=== PATIENT | female | born 1960 | race Hispanic/Latino ===

== ENCOUNTER 2017-06-18 14:18 | Emergency (ER) | payer BC ==
[2017-06-18 15:01] VITALS: BP 135/77
--- NOTE | 2017-06-18 15:47 | XRay Report ---
RIGHT TOE RADIOGRAPHS INDICATION: Pain. COMPARISON: 07/15/2015. FINDINGS: AP view of the right foot with oblique and lateral projections to evaluate the fifth toe demonstrate grossly intact bones, joints and soft tissues. Osteopenia. Interval healing of fifth metatarsal fracture. CONCLUSION: No definite acute right fifth toe radiographic abnormality, as described. Please correlate. Thank you for the opportunity to participate in this patient's care.
--- NOTE | 2017-06-18 16:04 | Emergency Department Report ---
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 PT denies numbness or tingling MD Complaint: foot injury Onset/Timin -: days(s) Injury: Toes: Right (pinky ) Type of Injury: other (ran over by [employer] ) Place: work Severity: moderate Severity scale (0 -10): 5 Improves With: nothing Worsens With: weight bearing, movement, palpation Context: other (ran over by [employer] ) Associated Symptoms: swelling, able to partially bear weight. denies: numbness , tingling Treatments Prior to Arrival: cold therapy - Related Data Home Medications Medication Instructions Recorded Confirmed Last Taken Meclizine [Antivert] 25 mg PO BID PRN 07/15/15 07/15/15 Unknown Previous Rx's Medication Instructions Recorded Last Taken Type HYDROcodone/APAP 5-325 [[place] 1 each PO Q6HR PRN #15 tablet 07/15/15 Unknown Rx 5/325] Acetaminophen/Codeine [Tylenol 1 tab PO Q8HR PRN #21 tab 06/18/17 Unknown Rx /Codeine # 3 tab] Allergies Allergy/AdvReac Type Severity Reaction Status Date / Time ibuprofen AdvReac Nausea Verified 07/15/15 13:21 ED Review of Systems ROS: Stated complaint: BROKEN R TOE Other details as noted in HPI Constitutional: denies: chills, fever Eyes: denies: eye pain, eye discharge, vision change ENT: denies: ear pain, throat pain Respiratory: denies: cough, shortness of breath, wheezing Cardiovascular: denies: chest pain, palpitations Endocrine: no symptoms reported Gastrointestinal: denies: abdominal pain, nausea, diarrhea Genitourinary: denies: urgency, dysuria, discharge Musculoskeletal: myalgia, other (right foot and pinky toe pain ) Skin: denies: rash, lesions Neurological: denies: headache, weakness, paresthesias Psychiatric: denies: anxiety, depression Hematological/Lymphatic: denies: easy bleeding, easy bruising ED Past Medical Hx - Past Medical History Previous Medical History?: Yes Additional medical history: VERTIGO - Surgical History Additional Surgical History: HYSTERECTOMY. - Social History Smoking Status: Current Every Day Smoker Substance Use Type: None - Medications Home Medications: Home Medications Medication Instructions Recorded Confirmed Last Taken Type HYDROcodone/APAP 5-325 [[place] 1 each PO Q6HR PRN #15 tablet 07/15/15 Unknown Rx 5/325] Meclizine [Antivert] 25 mg PO BID PRN 07/15/15 07/15/15 Unknown History Acetaminophen/Codeine [Tylenol 1 tab PO Q8HR PRN #21 tab 06/18/17 Unknown Rx /Codeine # 3 tab] ED Physical Exam - General Limitations: No Limitations General appearance: alert, in no apparent distress - Head Head exam: Present: atraumatic, normocephalic - Eye Eye exam: Present: normal appearance - ENT ENT exam: Present: mucous membranes moist - Neck Neck exam: Present: normal inspection - Respiratory Respiratory exam: Present: normal lung sounds bilaterally. Absent: respiratory distress - Cardiovascular Cardiovascular Exam: Present: regular rate, normal rhythm. Absent: systolic murmur, diastolic murmur, rubs, gallop - GI/Abdominal GI/Abdominal exam: Present: soft, normal bowel sounds - Rectal Rectal exam: Present: deferred - Extremities Exam Extremities exam: Present: full ROM, tenderness (right pinky toe ecchymosis mild swelling ), normal capillary refill. Absent: pedal edema, joint swelling, calf tenderness - Expanded Lower Extremity Exam Right Foot/Toe exam: Present: full ROM, tenderness, swelling, ecchymosis, tenderness at base of 5th metatarsal. Absent: abrasion, laceration, deformity, crepidus, dislocation, erythema, amputation, puncture wound, foreign body, calcaneal tenderness, nail avulsion, subungual hematoma Neuro vascular tendon exam: Present: no vascular compromise. Absent: pulse deficit, abnormal cap refill, motor deficit, sensory deficit, tendon deficit, extremity cold to touch, pallor, abnormal 2-point discrimination, decreased fine /light touch, foot drop, peroneal nerve deficit, significant pain with passive ROM of distal joint Gait: Positive: observed and limited by pain - Back Exam Back exam: Present: normal inspection - Neurological Exam Neurological exam: Present: alert, oriented X3 - Psychiatric Psychiatric exam: Present: normal affect, normal mood - Skin Skin exam: Present: warm, dry, intact, normal color. 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 PT denies numbness or tingling. exam right 5th toe mild ecchymosis no deformity pain with palpation xray negative for fracture. plan: ortho shoe, tylenol #3 po qid prn pain, follow up with ortho if symptoms not improving, pt verbalized agreement and understanding of same. Critical care attestation.: If time is entered above; I have spent that time in minutes in the direct care of this critically ill patient, excluding procedure time. ED Disposition Clinical Impression: Sprain of toe, fifth, right Qualifiers: Encounter type: initial encounter Qualified Code(s): S93.504A - Unspecified sprain of right lesser toe(s), initial encounter Disposition: - TO HOME OR SELFCARE Is pt being admited?: No Does the pt Need Aspirin: No Condition: Good Instructions: Foot Sprain (ED) Prescriptions: Acetaminophen/Codeine [Tylenol /Codeine # 3 tab] 1 tab PO Q8HR PRN #21 tab PRN Reason: Pain Referrals: MARI LIRIANO MD [Staff Physician] - 3-5 Days Forms: Work/School Release Form(ED) Time of Disposition: 16:14
== END 2017-06-18 17:00 | disposition home or self-care (01) ==
LOC: ED 14:18
DX: S93.504A Unspecified sprain of right lesser toe(s), initial encounter (principal); F17.200 Nicotine dependence, unspecified, uncomplicated; Z88.6 Allergy status to analgesic agent; X58.XXXA Exposure to other specified factors, initial encounter; Y93.89 Activity, other specified; Y92.89 Other specified places as the place of occurrence of the external cause; Y99.8 Other external cause status
CPT/HCPCS: 99283

== ENCOUNTER 2017-12-25 04:59 | Emergency (ER) | payer BC ==
[2017-12-25 06:21] LABS: Basophils % (Auto) 0.4 % (0.0-1.8); Eosinophils # (Auto) 0.1 K/mm3 (0.0-0.4); Eosinophils % (Auto) 1.4 % (0.0-4.3); Hematocrit 42.3 % (30.3-42.9); Hemoglobin 14.6 gm/dl (10.1-14.3); Lymphocytes # (Auto) 1.9 K/mm3 (1.2-5.4); Lymphocytes % (Auto) 20.4 % (13.4-35.0); Mean Corpuscular HGB Conc 35 % (30-34); Mean Corpuscular Hemoglobin 33 pg (28-32); Mean Corpuscular Volume 95 fl (79-97); Monocytes # (Auto) 0.5 K/mm3 (0.0-0.8); Monocytes % (Auto) 5.3 % (0.0-7.3); Platelet Count 281 K/mm3 (140-440); Red Blood Count 4.44 M/mm3 (3.65-5.03); Red Cell Distribution Width 12.7 % (13.2-15.2)
[2017-12-25 06:39] LABS: BUN/Creatinine Ratio 20; Blood Urea Nitrogen 12 mg/dL (7-17); Calcium 9.3 mg/dL (8.4-10.2); Hemolysis Index 5
[2017-12-25 08:30] VITALS: BP 137/79
[2017-12-25] MEDS ORDERED: TORADOL IM ONE (10:39)
[2017-12-25] MEDS ORDERED: ZOFRAN IM ONE (10:39)
--- NOTE | 2017-12-25 10:42 | Emergency Department Report ---
ED General Adult HPI - General Chief complaint: Chest Pain Stated complaint: CHEST/BACK PAIN Time Seen by Provider: 12/25/17 10:30 Source: patient Mode of arrival: Ambulatory Limitations: No Limitations - History of Present Illness Initial comments: Patient is a 57-year-old female who is presenting with several days of right upper quadrant and right chest and right scapular pain. Patient states that her pain started out very light off and on about 3 days ago. Patient states it was occurring randomly but was not too bothersome. Patient states that initially was around a 3 out of 10 in severity last up to several minutes at a time. Patient states this morning the pain intensified. Patient' s last meal was asked to some macaroni and cheese last night. Patient states she was nauseated this morning. Patient denies any vomiting fevers chills cough cold congestion. Patient states she does have some pain with movement as well. Denies a pleuritic component states there is no shortness of breath as well. - Related Data Home Medications Medication Instructions Recorded Confirmed Last Taken Meclizine [Antivert] 25 mg PO BID PRN 07/15/15 07/15/15 Unknown Previous Rx's Medication Instructions Recorded Last Taken Type HYDROcodone/APAP 5-325 [[place] 1 each PO Q6HR PRN #15 tablet 07/15/15 Unknown Rx 5/325] Acetaminophen/Codeine [Tylenol 1 tab PO Q8HR PRN #21 tab 06/18/17 Unknown Rx /Codeine # 3 tab] methOCARBAMOL [Robaxin TAB] 500 mg PO Q6H PRN #15 tablet 12/25/17 Unknown Rx traMADol [Ultram] 50 mg PO Q6HR PRN #10 tablet 12/25/17 Unknown Rx Allergies Allergy/AdvReac Type Severity Reaction Status Date / Time ibuprofen AdvReac Nausea Verified 12/25/17 05:29 ED Review of Systems ROS: Stated complaint: CHEST/BACK PAIN Other details as noted in HPI Comment: All other systems reviewed and negative ED Past Medical Hx - Past Medical History Additional medical history: VERTIGO - Surgical History Additional Surgical History: HYSTERECTOMY. - Social History Smoking Status: Current Every Day Smoker Substance Use Type: Alcohol - Medications Home Medications: Home Medications Medication Instructions Recorded Confirmed Last Taken Type HYDROcodone/APAP 5-325 [[place] 1 each PO Q6HR PRN #15 tablet 07/15/15 Unknown Rx 5/325] Meclizine [Antivert] 25 mg PO BID PRN 07/15/15 07/15/15 Unknown History Acetaminophen/Codeine [Tylenol 1 tab PO Q8HR PRN #21 tab 06/18/17 Unknown Rx /Codeine # 3 tab] methOCARBAMOL [Robaxin TAB] 500 mg PO Q6H PRN #15 tablet 12/25/17 Unknown Rx traMADol [Ultram] 50 mg PO Q6HR PRN #10 tablet 12/25/17 Unknown Rx ED Physical Exam - General Limitations: No Limitations General appearance: alert, in no apparent distress - Head Head exam: Present: atraumatic, normocephalic - Eye Eye exam: Present: normal appearance - ENT ENT exam: Present: mucous membranes moist - Neck Neck exam: Present: normal inspection - Respiratory Respiratory exam: Present: normal lung sounds bilaterally. Absent: respiratory distress, wheezes, rales, rhonchi - Cardiovascular Cardiovascular Exam: Present: regular rate, normal rhythm. Absent: systolic murmur, diastolic murmur, rubs, gallop - GI/Abdominal GI/Abdominal exam: Present: soft, normal bowel sounds. Absent: distended, tenderness, guarding, rebound - Extremities Exam Extremities exam: Present: normal inspection - Back Exam Back exam: Present: normal inspection - Neurological Exam Neurological exam: Present: alert, oriented X3 - Psychiatric Psychiatric exam: Present: normal affect, normal mood - Skin Skin exam: Present: warm, dry, intact, normal color. Absent: rash ED Course Vital Signs 12/25/17 08:26 Temperature 98.0 F Pulse Rate 65 Respiratory 18 Rate Blood Pressure 137/79 [Right] O2 Sat by Pulse 100 Oximetry - Reevaluation(s) Reevaluation #1: 12/25/17 10:42 Patient's EKG and cardiac enzymes are within normal limits. Patient's symptoms are most consistent with possible biliary colic therefore ultrasound of the patient's gallbladder will be taken. ED Medical Decision Making - Lab Data Result diagrams: 12/25/17 05:57 12/25/17 05:57 Lab Results 12/25/17 12/25/17 12/25/17 Range/Units 05:57 05:57 08:38 WBC 9.5 (4.5-11.0) K/mm3 RBC 4.44 (3.65-5.03) M/mm3 Hgb 14.6 H (10.1-14.3) gm/dl Hct 42.3 (30.3-42.9) % MCV 95 (79-97) fl MCH 33 H (28-32) pg MCHC 35 H (30-34) % RDW 12.7 L (13.2-15.2) % Plt Count 281 (140-440) K/mm3 Lymph % (Auto) 20.4 (13.4-35.0) % [place] % (Auto) 5.3 (0.0-7.3) % Eos % (Auto) 1.4 (0.0-4.3) % Baso % (Auto) 0.4 (0.0-1.8) % Lymph # 1.9 (1.2-5.4) K/mm3 [place] # 0.5 (0.0-0.8) K/mm3 Eos # 0.1 (0.0-0.4) K/mm3 Baso # 0.0 (0.0-0.1) K/mm3 Seg Neutrophils % 72.5 H (40.0-70.0) % Seg Neutrophils # 6.9 (1.8-7.7) K/mm3 Sodium 141 (137-145) mmol/L Potassium 4.1 (3.6-5.0) mmol/L Chloride 100.5 (98-107) mmol/L Carbon Dioxide 28 (22-30) mmol/L Anion Gap 17 mmol/L BUN 12 (7-17) mg/dL Creatinine 0.6 L (0.7-1.2) mg/dL Estimated GFR > 60 ml/min BUN/Creatinine Ratio 20 % Glucose 97 (65-100) mg/dL Calcium 9.3 (8.4-10.2) mg/dL Troponin T < 0.010 < 0.010 (0.00-0.029) ng/mL - EKG Data -: EKG Interpreted by Me - EKG Data 12/25/17 12:27 EKG shows sinus rhythm a rate of 72 normal axis normal intervals and no ST segment elevations or depressions our interpretation is 0 516 - Radiology Data Patient: PAULETTE UREÑA MR#: [id number] : 1960 Acct:[id number] Age/Sex: 57 / F ADM Date: 12/25/17 Loc: ED Attending Dr: Ordering Physician: KEVIN NAJERA MD Date of Service: 12/25/17 Procedure(s): US abdomen complete Accession Number(s): [id number] cc: KEVIN NAJERA MD ULTRASOUND ABDOMEN COMPLETE: TECHNIQUE: Transabdominal ultrasound with color Doppler interrogation. HISTORY: Right upper quadrant abdominal pain. COMPARISON: none. FINDINGS: LIVER: Normal. BILIARY SYSTEM: Normal. PANCREAS: Normal. SPLEEN: Normal. KIDNEYS: Normal. AORTA/IVC: Normal. ASCITES: None. IMPRESSION: Unremarkable exam. Transcribed By: TTR Dictated By: JEANETTE EPPS JR, MD Electronically Authenticated By: JEANETTE EPPS JR, MD Signed Date/Time: 12/25/17 1140 - Medical Decision Making Patient's been ruled out for acute coronary syndrome as well as gallstones. Patient's state that she believes this may be musculoskeletal secondary to the fact she lives heavy boxes at work. This information was not given to me until after the patient's complete workup. Patient initially stated she did not know any possibility is aware this pain would be coming from. Patient restarted on muscle relaxant and be discharged home. Critical care attestation.: If time is entered above; I have spent that time in minutes in the direct care of this critically ill patient, excluding procedure time. ED Disposition Clinical Impression: Atypical chest pain, Musculoskeletal pain Disposition: DC-01 TO HOME OR SELFCARE Is pt being admited?: No Does the pt Need Aspirin: No Condition: Stable Instructions: Musculoskeletal Pain (ED) Referrals: CHELITA KEENE MD [Primary Care Provider] - 3-5 Days
--- NOTE | 2017-12-25 11:52 | Ultrasound Report ---
ULTRASOUND ABDOMEN COMPLETE: TECHNIQUE: Transabdominal ultrasound with color Doppler interrogation. HISTORY: Right upper quadrant abdominal pain. COMPARISON: none. FINDINGS: LIVER: Normal. BILIARY SYSTEM: Normal. PANCREAS: Normal. SPLEEN: Normal. KIDNEYS: Normal. AORTA/IVC: Normal. ASCITES: None. IMPRESSION: Unremarkable exam.
== END 2017-12-25 12:44 | disposition home or self-care (01) ==
LOC: ED 04:59
DX: R10.11 Right upper quadrant pain (principal); R07.89 Other chest pain; R11.0 Nausea; F17.200 Nicotine dependence, unspecified, uncomplicated; Z90.710 Acquired absence of both cervix and uterus; Z88.6 Allergy status to analgesic agent
CPT/HCPCS: 36415; 76700; 80048; 84484; 85025; 93005; 93010; 96372; 99284; J1885; J2405

== ENCOUNTER 2018-11-01 14:24 | Emergency (ER) | payer BC ==
--- NOTE | 2018-11-01 14:40 | Emergency Department Report ---
Blank Doc - Documentation Documentation: 57 y o female with a hx of vertigo on meclizine who presents to ed cc of dizzi ness x friday also cc of hot flushes from menopause have not taken meclizine because it doesnt work [facility] jacquelin has seen ENT June 2018
[2018-11-01 14:42] VITALS: BP 138/86
--- NOTE | 2018-11-01 15:26 | Emergency Department Report ---
ED Dizziness HPI - General Chief Complaint: Earache Stated Complaint: (L) EAR RINGING Time Seen by Provider: 11/01/18 14:36 Source: patient Mode of arrival: Ambulatory Limitations: No Limitations - History of Present Illness Initial Comments: This is a 57-year-old female nontoxic, well nourished in appearance, no acute signs of distress presents to the ED with c/o of acute on chronic intermittent dizziness, bilateral ear ringing, and hot flashes x3 years. Patient denies any headache. Patient stated that she did see ear nose and throat doctor and was diagnosed with vertigo. Patient is currently taking Antivert. Patient denies ever having a CT scan or laboratory examinations. Patient denies any visual changes. Patient denies any numbness, tingling, fever, chills, nausea, vomiting, chest pain, shortness of breath, stiff neck. Patient is a patient with a history of Vertigo. MD Complaint: dizziness, lightheadedness, other (jacqueline ear rings) -: week(s) Timing: intermittent Description: "room spinning", lightheadedness, nausea History of Same: Yes History of Trauma: No Severity: mild Improves With: nothing Worsens With: nothing Associated Symptoms: denies other symptoms. denies: ataxia, chest pain, confusion, cough, diaphoresis, fever/chills, loss of appetite, malaise, rash, seizure, shortness of breath, syncope, weakness - Related Data Home Medications Medication Instructions Recorded Confirmed Last Taken Meclizine [Antivert] 25 mg PO BID PRN 07/15/15 07/15/15 Unknown Previous Rx's Medication Instructions Recorded Last Taken Type HYDROcodone/APAP 5-325 [[place] 1 each PO Q6HR PRN #15 tablet 07/15/15 Unknown Rx 5/325] Acetaminophen/Codeine [Tylenol 1 tab PO Q8HR PRN #21 tab 06/18/17 Unknown Rx /Codeine # 3 tab] methOCARBAMOL [Robaxin TAB] 500 mg PO Q6H PRN #15 tablet 12/25/17 Unknown Rx traMADol [Ultram] 50 mg PO Q6HR PRN #10 tablet 12/25/17 Unknown Rx Allergies Allergy/AdvReac Type Severity Reaction Status Date / Time ibuprofen AdvReac Nausea Verified 05/20/18 10:25 ED Review of Systems ROS: Stated complaint: (L) EAR RINGING Other details as noted in HPI Constitutional: denies: chills, fever Eyes: denies: eye pain, eye discharge, vision change ENT: other (ringing in ears). denies: ear pain, throat pain Respiratory: denies: cough, shortness of breath, wheezing Cardiovascular: denies: chest pain, palpitations Endocrine: no symptoms reported Gastrointestinal: nausea. denies: abdominal pain, vomiting, diarrhea Genitourinary: denies: urgency, dysuria, discharge Musculoskeletal: denies: back pain, joint swelling, arthralgia Skin: denies: rash, lesions Neurological: vertigo. denies: headache, weakness, paresthesias Psychiatric: denies: anxiety, depression Hematological/Lymphatic: denies: easy bleeding, easy bruising ED Past Medical Hx - Past Medical History Hx COPD: Yes Additional medical history: VERTIGO - Surgical History Additional Surgical History: HYSTERECTOMY. - Social History Smoking Status: Current Every Day Smoker Substance Use Type: Prescribed - Medications Home Medications: Home Medications Medication Instructions Recorded Confirmed Last Taken Type HYDROcodone/APAP 5-325 [[place] 1 each PO Q6HR PRN #15 tablet 07/15/15 Unknown Rx 5/325] Meclizine [Antivert] 25 mg PO BID PRN 07/15/15 07/15/15 Unknown History Acetaminophen/Codeine [Tylenol 1 tab PO Q8HR PRN #21 tab 06/18/17 Unknown Rx /Codeine # 3 tab] methOCARBAMOL [Robaxin TAB] 500 mg PO Q6H PRN #15 tablet 12/25/17 Unknown Rx traMADol [Ultram] 50 mg PO Q6HR PRN #10 tablet 12/25/17 Unknown Rx ED Physical Exam - General Limitations: No Limitations General appearance: alert, in no apparent distress - Head Head exam: Present: atraumatic, normocephalic - Eye Eye exam: Present: normal appearance, PERRL, EOMI - ENT ENT exam: Present: normal exam, normal orophraynx, TM's normal bilaterally, normal external ear exam - Neck Neck exam: Present: normal inspection, full ROM. Absent: tenderness, meningismus, lymphadenopathy - Respiratory Respiratory exam: Present: normal lung sounds bilaterally. Absent: respiratory distress, wheezes, rales, rhonchi, stridor, chest wall tenderness, accessory muscle use, decreased breath sounds, prolonged expiratory - Cardiovascular Cardiovascular Exam: Present: regular rate, normal rhythm, normal heart sounds. Absent: bradycardia, tachycardia, irregular rhythm, systolic murmur, diastolic murmur, rubs, gallop - Extremities Exam Extremities exam: Present: normal inspection, full ROM, normal capillary refill - Back Exam Back exam: Present: normal inspection, full ROM. Absent: tenderness, CVA tenderness (R), CVA tenderness (L), muscle spasm, paraspinal tenderness, vert ebral tenderness, rash noted - Neurological Exam Neurological exam: Present: alert, oriented X3, normal gait - Expanded Neurological Exam Expanded Patient oriented to: Present: person, place, time Cranial nerves: EOM's Intact: Normal, Facial Sensation: Normal Cerebellar function: Finger to Nose: Normal Upper motor neuron: Pronator Drift: Normal, Sensory Extinction: Normal Sensory exam: Upper Extremity Light Touch: Normal, Upper Extremity Pin Prick: Normal, Upper Extremity Temperature: Normal, Lower Extremity Light Touch: Normal, Lower Extremity Pin Prick: Normal, Lower Extremity Temperature: Normal Motor strength exam: RUE: 5, LUE: 5, RLE: 5, LLE: 5 Best Eye Response (Vamshi): (4) open spontaneously Best Motor Response ([place]): (6) obeys commands Best Verbal Response (Vamshi): (5) oriented Vamshi Total: 15 - Psychiatric Psychiatric exam: Present: normal affect, normal mood - Skin Skin exam: Present: warm, dry, intact, normal color. Absent: rash ED Course Vital Signs 11/01/18 14:40 Temperature 97.6 F Pulse Rate 80 Respiratory 20 Rate Blood Pressure 138/86 O2 Sat by Pulse 100 Oximetry - Reevaluation(s) Reevaluation #1: 11/01/18 17:00 Patient is speaking in full sentences with no signs of distress noted. ED Medical Decision Making - Lab Data Result diagrams: 11/01/18 15:21 11/01/18 15:21 - Medical Decision Making This is a 57-year-old female that presents with vertigo. Patient is stable and was examined by me. Labs has been obtained and unremarkable. CT scan of head/b rain has been obtained and dictated by radiologist within normal limits. Patient is notified of the CT and lab results with no questions noted by the patient. Orthostatic vital signs has been obtained and there is slight orthostatic vitals but are not more then 20. I did give patient 1 L of normal saline which she stated the symptoms as improved. Patient did state it is a chronic issue going on. Patient was instructed to Follow-up with a primary care doctor in 3-5 days or if symptoms worsen and continue return to emergency room as soon as possible. At time of discharge, the patient does not seem toxic or ill in appearance. No acute signs of distress noted. Patient agrees to discharge treatment plan of care. No further questions noted by the patient. Critical care attestation.: If time is entered above; I have spent that time in minutes in the direct care of this critically ill patient, excluding procedure time. ED Disposition Clinical Impression: Vertigo Disposition: DC-01 TO HOME OR SELFCARE Is pt being admited?: No Does the pt Need Aspirin: No Condition: Stable Instructions: Vertigo (ED) Additional Instructions: Follow-up with a primary care/neurologist doctor in 3-5 days or if symptoms worsen and continue return to emergency room as soon as possible. Referrals: JOSE MARTIN WONG MD [Primary Care Provider] - 3-5 Days PRIMARY MD AZAEL [Referring] - 3-5 Days GLORIA INMAN MD [Staff Physician] - 3-5 Days GEOVANI MCKEON MD [Staff Physician] - 3-5 Days [facility] [Outside] - 3-5 Days [facility] [Outside] - 3-5 Days
[2018-11-01 15:36] LABS: Basophils % (Auto) 0.6 % (0.0-1.8); Eosinophils # (Auto) 0.1 K/mm3 (0.0-0.4); Eosinophils % (Auto) 1.2 % (0.0-4.3); Hematocrit 45.1 % (30.3-42.9); Hemoglobin 15.5 gm/dl (10.1-14.3); Lymphocytes # (Auto) 2.2 K/mm3 (1.2-5.4); Mean Corpuscular HGB Conc 34 % (30-34); Mean Corpuscular Volume 94 fl (79-97); Monocytes # (Auto) 0.4 K/mm3 (0.0-0.8); Monocytes % (Auto) 5.7 % (0.0-7.3); Platelet Count 300 K/mm3 (140-440); Red Blood Count 4.78 M/mm3 (3.65-5.03)
[2018-11-01 15:48] LABS: BUN/Creatinine Ratio 20; Blood Urea Nitrogen 12 mg/dL (7-17); Calcium 9.3 mg/dL (8.4-10.2); Hemolysis Index 6
[2018-11-01] MEDS ORDERED: NACL 0.9% 1000 ML 1,000 ML IV ONE (16:56)
--- NOTE | 2018-11-01 17:03 | Cat Scan Report ---
PROCEDURE: CT head without contrast. TECHNIQUE: Computerized tomography of the head was performed without contrast material. CT DOSE LENGTH PRODUCT: 805.4 mGycm HISTORY: Dizziness. COMPARISONS: None. FINDINGS: The ventricles are normal in size. The phillips matter and white matter appear normal. There are no mass lesions. There is no intracranial hemorrhage. The calvarium appears intact. The mastoid air cells and paranasal sinuses are clear as far as visualized. IMPRESSION: Normal study. This document is electronically signed by Delfin Wray MD., November 01 2018 06:01:08 PM ET
== END 2018-11-01 18:42 | disposition home or self-care (01) ==
LOC: ED 14:24
DX: R42 Dizziness and giddiness (principal); H93.13 Tinnitus, bilateral; J44.9 Chronic obstructive pulmonary disease, unspecified; F17.200 Nicotine dependence, unspecified, uncomplicated; Z90.710 Acquired absence of both cervix and uterus; Z88.5 Allergy status to narcotic agent
CPT/HCPCS: 36415; 70450; 80048; 85025; 96360; 99284; J7030

== ENCOUNTER 2019-03-19 11:31 | Observation (INO) | payer BC ==
--- NOTE | 2019-03-19 11:55 | Event Note ---
ED Screening Note Date of service: 03/19/19 Time: 11:52 ED Screening Note: Pt complains of intermittent chest pain x 4 weeks. Denies current chest pain. +wheezing on exam RRR This initial assessment/diagnostic orders/clinical plan/treatment(s) is/are subject to change based on patients health status, clinical progression and re- assessment by fellow clinical providers in the ED. Further treatment and workup at subsequent clinical providers discretion. Patient/guardian urged not to elope from the ED as their condition may be serious if not clinically assessed and managed. Initial orders include:
--- NOTE | 2019-03-19 13:28 | XRay Report ---
CHEST 2 VIEWS INDICATION: chest pain. COMPARISON: 05/20/2018 FINDINGS: Support devices: None. Heart: Within normal limits. Lungs/pleura: No acute air space or interstitial disease. No pneumothorax. Additional findings: None. IMPRESSION: Normal chest x-ray. Signer Name: Clayton Levin Jr, MD Signed: 03/19/2019 1:23 PM Workstation Name: [id number]
[2019-03-19 13:37] LABS: Basophils # (Auto) 0.1 K/mm3 (0.0-0.1); Basophils % (Auto) 0.7 % (0.0-1.8); Eosinophils # (Auto) 0.2 K/mm3 (0.0-0.4); Hematocrit 45.4 % (30.3-42.9); Hemoglobin 15.6 gm/dl (10.1-14.3); Lymphocytes # (Auto) 2.2 K/mm3 (1.2-5.4); Lymphocytes % (Auto) 28.9 % (13.4-35.0); Mean Corpuscular HGB Conc 34 % (30-34); Mean Corpuscular Volume 95 fl (79-97); Monocytes # (Auto) 0.5 K/mm3 (0.0-0.8); Monocytes % (Auto) 6.5 % (0.0-7.3); Platelet Count 306 K/mm3 (140-440); Red Blood Count 4.79 M/mm3 (3.65-5.03); Red Cell Distribution Width 13.2 % (13.2-15.2)
[2019-03-19 13:58] LABS: BUN/Creatinine Ratio 23; Blood Urea Nitrogen 9 mg/dL (7-17); Calcium 9.3 mg/dL (8.4-10.2); Hemolysis Index 3
--- NOTE | 2019-03-19 16:13 | Emergency Department Report ---
ED General Adult HPI - General Chief complaint: Chest Pain Stated complaint: CHEST PAIN/SHAKING Time Seen by Provider: 03/19/19 12:48 Source: patient Mode of arrival: Ambulatory Limitations: No Limitations - History of Present Illness Initial comments: Patient presents to the emergency department with a chief complaint of substernal chest pain that has been present for the last 3 weeks. Patient does endorse having some chest pain on exertion as well. On the patient's blood pressure was 174/102. Patient denies abdominal pain, headache, weakness. -: Sudden Location: chest Radiation: non-radiation Severity scale (0 -10): 6 Consistency: intermittent Improves with: none Worsens with: movement Associated Symptoms: denies other symptoms Treatments Prior to Arrival: none - Related Data Home Medications Medication Instructions Recorded Confirmed Last Taken Meclizine [Antivert] 25 mg PO BID PRN 07/15/15 03/19/19 03/11/19 ALPRAZolam [Xanax TAB] 0.5 mg PO TID PRN 03/19/19 03/19/19 03/18/19 Allergies Allergy/AdvReac Type Severity Reaction Status Date / Time ibuprofen AdvReac Nausea Verified 05/20/18 10:25 ED Review of Systems ROS: Stated complaint: CHEST PAIN/SHAKING Other details as noted in HPI Comment: All other systems reviewed and negative Constitutional: denies: chills, fever Eyes: denies: eye pain, eye discharge, vision change ENT: denies: ear pain, throat pain Respiratory: denies: cough, shortness of breath, wheezing Cardiovascular: chest pain. denies: palpitations Endocrine: no symptoms reported Gastrointestinal: denies: abdominal pain, nausea, diarrhea Genitourinary: denies: urgency, dysuria, discharge Musculoskeletal: denies: back pain, joint swelling, arthralgia Skin: denies: rash, lesions Neurological: denies: headache, weakness, paresthesias Psychiatric: denies: anxiety, depression Hematological/Lymphatic: denies: easy bleeding, easy bruising ED Past Medical Hx - Past Medical History Hx COPD: Yes Additional medical history: VERTIGO - Surgical History Additional Surgical History: HYSTERECTOMY. - Social History Smoking Status: Current Every Day Smoker - Medications Home Medications: Home Medications Medication Instructions Recorded Confirmed Last Taken Type Meclizine [Antivert] 25 mg PO BID PRN 07/15/15 03/19/19 03/11/19 History ALPRAZolam [Xanax TAB] 0.5 mg PO TID PRN 03/19/19 03/19/19 03/18/19 History ED Physical Exam - General Limitations: No Limitations General appearance: alert, in no apparent distress - Head Head exam: Present: atraumatic, normocephalic - Eye Eye exam: Present: normal appearance, PERRL, EOMI - ENT ENT exam: Present: mucous membranes moist - Neck Neck exam: Present: normal inspection - Respiratory Respiratory exam: Present: normal lung sounds bilaterally. Absent: respiratory distress - Cardiovascular Cardiovascular Exam: Present: regular rate, normal rhythm. Absent: systolic murmur, diastolic murmur, rubs, gallop - GI/Abdominal GI/Abdominal exam: Present: soft, normal bowel sounds. Absent: distended, tenderness - Extremities Exam Extremities exam: Present: normal inspection - Back Exam Back exam: Present: normal inspection - Neurological Exam Neurological exam: Present: alert, oriented X3, CN II-XII intact. Absent: motor sensory deficit - Psychiatric Psychiatric exam: Present: normal affect, normal mood - Skin Skin exam: Present: warm, dry, intact, normal color. Absent: rash ED Course Vital Signs 03/19/19 03/19/19 03/19/19 12:56 13:01 14:01 Pulse Rate 75 65 61 Respiratory 12 23 17 Rate Blood Pressure 142/89 142/89 O2 Sat by Pulse 97 Oximetry 03/19/19 03/19/19 15:00 16:00 Pulse Rate 61 58 L Respiratory 23 16 Rate Blood Pressure 147/86 157/86 O2 Sat by Pulse 96 97 Oximetry ED Medical Decision Making - Lab Data Result diagrams: 03/19/19 13:08 03/19/19 13:08 Lab Results 03/19/19 03/19/19 Range/Units 13:08 13:08 WBC 7.7 (4.5-11.0) K/mm3 RBC 4.79 (3.65-5.03) M/mm3 Hgb 15.6 H (10.1-14.3) gm/dl Hct 45.4 H (30.3-42.9) % MCV 95 (79-97) fl MCH 33 H (28-32) pg MCHC 34 (30-34) % RDW 13.2 (13.2-15.2) % Plt Count 306 (140-440) K/mm3 Lymph % (Auto) 28.9 (13.4-35.0) % [place] % (Auto) 6.5 (0.0-7.3) % Eos % (Auto) 2.0 (0.0-4.3) % Baso % (Auto) 0.7 (0.0-1.8) % Lymph # 2.2 (1.2-5.4) K/mm3 [place] # 0.5 (0.0-0.8) K/mm3 Eos # 0.2 (0.0-0.4) K/mm3 Baso # 0.1 (0.0-0.1) K/mm3 Seg Neutrophils % 61.9 (40.0-70.0) % Seg Neutrophils # 4.7 (1.8-7.7) K/mm3 Sodium 142 (137-145) mmol/L Potassium 4.8 (3.6-5.0) mmol/L Chloride 103.3 (98-107) mmol/L Carbon Dioxide 25 (22-30) mmol/L Anion Gap 19 mmol/L BUN 9 (7-17) mg/dL Creatinine 0.4 L (0.7-1.2) mg/dL Estimated GFR > 60 ml/min BUN/Creatinine Ratio 23 % Glucose 90 (65-100) mg/dL Calcium 9.3 (8.4-10.2) mg/dL Troponin T < 0.010 (0.00-0.029) ng/mL - EKG Data -: EKG Interpreted by [facility] EKG shows normal: sinus rhythm Rate: normal - Radiology Data Radiology results: report reviewed - Medical Decision Making Discussed the patient with Dr. Lane who was the patient's primary care physician. Suggestive for the patient to be admitted to observation status for further cardiac workup Critical care attestation.: If time is entered above; I have spent that time in minutes in the direct care of this critically ill patient, excluding procedure time. ED Disposition Clinical Impression: Chest pain Disposition: DC-09 OP ADMIT IP TO THIS HOSP Is pt being admited?: Yes Does the pt Need Aspirin: No Condition: Fair Instructions: Chest Pain (ED) Referrals: PRIMARY CARE, [Primary Care Provider] - 3-5 Days
[2019-03-19] MEDS ORDERED: BABY ASPIRIN PO ONE (17:53)
[2019-03-19] MEDS ORDERED: NITRO-BID 2% TP ONE (17:53)
--- NOTE | 2019-03-19 18:08 | History and Physical Report ---
History of Present Illness Chief complaint: My chest hurts History of present illness: 58 YO Female with Anxiety, Vertigo, COPD, Nicotine Dependence presents to ED for evaluation. Pt states that she has experienced pain in her chest over the past 3 weeks with increasing intensity and frequency of pain over the past 4 days. Pt states that pain is 6/10, intermittent, worsened with exertion, nonradiation. Pt also acknowledges diaphoresis and shortness of breath as well as decreased exercise tolerance. Pt transported to [facility] via private vehicle. Pt seen and evaluated in ED and found to have Angina as well as symptoms consistent with Diastolic CHF, as well as Hypertensive Urgency. Pt admitted to telemetry. Cardiology consulted in ED. Pt denies fever, chills, palpitations, productive cough, skin rash, or recent ill contacts, unilateral leg swelling, calf pain, prolonged travel/immobility, Individual/Family history of DVT/PE/Bleeding/Blood Clotting Disorders. No prior admission for review. All listed medication reconciled at time of admission. Past History Past Medical History: other (see hpi) Past Surgical History: , hysterectomy Social history: single. denies: smoking, alcohol abuse, prescription drug abu se, IV drug use Family history: no significant family history (reviewed) Medications and Allergies Allergies Allergy/AdvReac Type Severity Reaction Status Date / Time ibuprofen AdvReac Nausea Verified 05/20/18 10:25 Home Medications Medication Instructions Recorded Confirmed Last Taken Type Meclizine [Antivert] 25 mg PO BID PRN 07/15/15 03/19/19 03/11/19 History ALPRAZolam [Xanax TAB] 0.5 mg PO TID PRN 03/19/19 03/19/19 03/18/19 History Review of Systems Constitutional: no weight loss, no weight gain, no fever, no chills Ears, nose, mouth and throat: no ear pain, no ear discharge, no tinnitis, no decreased hearing, no nose pain, no nasal discharge Breasts: no change in shape, no swelling, no mass Cardiovascular: chest pain, shortness of breath, dyspnea on exertion, high blood pressure, decreased exercise tolerance, no syncope, no lightheadedness Respiratory: no cough, no cough with sputum, no excessive sputum, no hemoptysis Gastrointestinal: no abdominal pain, no nausea, no vomiting, no diarrhea, no con stipation, no change in bowel habits Genitourinary Female: no pelvic pain, no menorrhagia, no dysuria, no stress incontinence, no post void dribbling, no incomplete emptying, no urge incontinence Menstruation: no premenarcheal, no post hysterectomy, no ammenorrhea, no ammenorrhea on BC, no period heavy Rectal: no pain, no incontinence, no bleeding Musculoskeletal: no neck stiffness, no shooting arm pain, no arm numbness/tingling, no shooting leg pain Integumentary: no rash, no pruritis, no redness, no jaundice Neurological: no head injury, no transient paralysis, no paralysis, no weakness, no numbness, no tingling Psychiatric: no anxiety, no memory loss, no sleep disturbances, no change in appetite Endocrine: no cold intolerance, no heat intolerance, no polyphagia, no excessive thirst Hematologic/Lymphatic: no easy bruising, no easy bleeding, no lymphadenopathy, no lymphedema Allergic/Immunologic: no urticaria, no allergic rhinitis, no wheezing, no persistent infections Exam - Constitutional Vitals: Temp Pulse Resp BP Pulse Ox 58 L 16 157/86 97 03/19/19 16:00 03/19/19 16:00 03/19/19 16:00 03/19/19 16:00 General appearance: Present: no acute distress, well-nourished - EENT Eyes: Present: PERRL ENT: hearing intact, clear oral mucosa - Neck Neck: Present: supple, normal ROM - Respiratory Respiratory effort: normal Respiratory: bilateral: CTA - Cardiovascular Heart Sounds: Present: S1 & S2. Absent: rub, click - Extremities Extremities: pulses symmetrical, No edema Peripheral Pulses: within normal limits - Abdominal General gastrointestinal: Present: soft, non-tender, non-distended, normal bowel sounds Female genitourinary: Present: normal - Integumentary Integumentary: Present: clear, warm, dry - Musculoskeletal Musculoskeletal: gait normal, strength equal bilaterally - Psychiatric Psychiatric: appropriate mood/affect, intact judgment & insight - Neurologic Neurologic: CNII-XII intact, moves all extremities Results - Labs CBC & Chem 7: 03/19/19 13:08 03/19/19 13:08 Labs: Abnormal lab results 03/19/19 03/19/19 Range/Units 13:08 13:08 Hgb 15.6 H (10.1-14.3) gm/dl Hct 45.4 H (30.3-42.9) % MCH 33 H (28-32) pg Creatinine 0.4 L (0.7-1.2) mg/dL Assessment and Plan - Patient Problems (1) Angina at rest Current Visit: Yes Status: Acute Plan to address problem: Serial cardiac enzymes, ekg, telemetry, stress test, cardiology consulted, morphine, supplemental oxygen, nitro, aspirin, (2) Diastolic CHF Current Visit: Yes Status: Acute Qualifiers: Heart failure chronicity: acute Qualified Code(s): I50.31 - Acute diastolic (congestive) heart failure Plan to address problem: Admit to telmetry, Echo, bnp, strict I/O, daily weight, cardiology consulted, supplemental oxygen, pulse oximetry (3) Nicotine dependence Current Visit: Yes Status: Acute Qualifiers: Substance use status: uncomplicated Plan to address problem: smoking cessation counseling, supportive care. (4) DVT prophylaxis Current Visit: Yes Status: Acute Plan to address problem: SCD to BLE while in bed
[2019-03-19] MEDS ORDERED: SODIUM CHLORIDE FLUSH SYRINGE 10 ML IV PRN ×2 (18:10)
[2019-03-19] MEDS ORDERED: TYLENOL PO PRN (18:10)
[2019-03-19] MEDS ORDERED: PROVENTIL IH PRN (18:10)
[2019-03-19] MEDS ORDERED: ZOFRAN IV PRN (18:10)
[2019-03-19] MEDS ORDERED: NITROSTAT SL PRN (18:10)
[2019-03-19] MEDS ORDERED: MORPHINE IV PRN (18:10)
[2019-03-19] MEDS ORDERED: XANAX PO PRN (18:12)
[2019-03-19] MEDS ORDERED: ANTIVERT PO PRN (18:12)
[2019-03-19 18:57] LABS: Chol/HDL Ratio 3.79 %
[2019-03-19] MEDS: PEPCID PO SCH (21:42)
[2019-03-19] MEDS ORDERED: SODIUM CHLORIDE FLUSH SYRINGE 10 ML IV SCH (22:00)
[2019-03-20 05:31] LABS: Basophils % (Auto) 0.4 % (0.0-1.8); Eosinophils # (Auto) 0.1 K/mm3 (0.0-0.4); Eosinophils % (Auto) 1.6 % (0.0-4.3); Hematocrit 39.2 % (30.3-42.9); Hemoglobin 13.3 gm/dl (10.1-14.3); Lymphocytes # (Auto) 2.4 K/mm3 (1.2-5.4); Lymphocytes % (Auto) 29.7 % (13.4-35.0); Mean Corpuscular HGB Conc 34 % (30-34); Mean Corpuscular Volume 95 fl (79-97); Monocytes # (Auto) 0.5 K/mm3 (0.0-0.8); Monocytes % (Auto) 6.5 % (0.0-7.3); Platelet Count 258 K/mm3 (140-440); Red Blood Count 4.11 M/mm3 (3.65-5.03); Red Cell Distribution Width 12.9 % (13.2-15.2)
[2019-03-20 05:46] LABS: Alanine Aminotransferase 24 units/L (7-56); Albumin 3.9 g/dL (3.9-5); BUN/Creatinine Ratio 27; Blood Urea Nitrogen 16 mg/dL (7-17); Calcium 8.5 mg/dL (8.4-10.2); Hemolysis Index 6
[2019-03-20] MEDS ORDERED: LEXISCAN IV ONE ×2 (08:02→08:08)
--- NOTE | 2019-03-20 09:52 | Consultation ---
History of Present Illness Consult date: 03/20/19 Consult reason: chest pain History of present illness: 58 year old female presenting with chest pain for the past 2-3 weeks. Pain varies intermittently from an intensity of 3/10-9/10. An associated with some shortness of breath. She denies any prior history of a heart attack of cardiac disease. No history of exertional angina. Past History Past Medical History: COPD, hypertension, hyperlipidemia, other (Anxiety, Vertigo) Past Surgical History: , hysterectomy Social history: single. denies: smoking, alcohol abuse, prescription drug abuse, IV drug use Family history: no significant family history (reviewed) Medications and Allergies Allergies Allergy/AdvReac Type Severity Reaction Status Date / Time ibuprofen AdvReac Nausea Verified 05/20/18 10:25 Home Medications Medication Instructions Recorded Confirmed Last Taken Type Meclizine [Antivert] 25 mg PO BID PRN 07/15/15 03/19/19 03/11/19 History ALPRAZolam [Xanax TAB] 0.5 mg PO TID PRN 03/19/19 03/19/19 03/18/19 History Active Meds: Active Medications Acetaminophen (Tylenol) 650 mg PO Q4H PRN PRN Reason: Pain MILD(1-3)/Fever >100.5/LEOS Albuterol (Proventil) 2.5 mg IH Q4HRT PRN PRN Reason: Shortness Of Breath Alprazolam (Xanax) 0.5 mg PO TID PRN PRN Reason: Anxiety Atorvastatin Calcium (Lipitor) 40 mg PO QHS [facility] Last Admin: 03/19/19 21:42 Dose: 40 mg Documented by: Famotidine (Pepcid) 10 mg PO BID [facility] Last Admin: 03/19/19 21:42 Dose: 10 mg Documented by: Meclizine HCl (Antivert) 25 mg PO BID PRN PRN Reason: Vertigo Morphine Sulfate (Morphine) 2 mg IV Q4H PRN PRN Reason: Pain, Moderate (4-6) Nitroglycerin (Nitrostat) 0.4 mg SL Q5M PRN PRN Reason: Chest Pain Ondansetron HCl (Zofran) 4 mg IV Q8H PRN PRN Reason: Nausea And Vomiting Sodium Chloride (Sodium Chloride Flush Syringe 10 Ml) 10 ml IV BID [facility] Last Admin: 10/18/19 21:42 Dose: 10 ml Documented by: Sodium Chloride (Sodium Chloride Flush Syringe 10 Ml) 10 ml IV PRN PRN PRN Reason: LINE FLUSH Sodium Chloride (Sodium Chloride Flush Syringe 10 Ml) 10 ml IV PRN PRN PRN Reason: LINE FLUSH Review of Systems All systems: negative Cardiovascular: chest pain Physical Examination Vital Signs Pulse Resp 75 12 03/19/19 12:56 03/19/19 12:56 General appearance: no acute distress, well-nourished HEENT: Positive: PERRL, Mucus Membranes Moist Neck: Positive: neck supple, trachea midline Cardiac: Positive: Reg Rate and Rhythm, S1/S2. Negative: Audible Murmur Lungs: Positive: clear to auscultation, Normal Breath Sounds Neuro: Positive: Grossly Intact Abdomen: Positive: Soft, Active Bowel Sounds. Negative: Tender, Distended Female genitourinary: deferred Skin: Positive: Clear Incision: Cardiac Cath Site Musculoskeletal: No Pain, Normal Range of Motion Extremities: Present: normal. Absent: edema Results 03/20/19 04:23 03/20/19 04:23 Cardiac Enzymes 03/20/19 Range/Units 04:23 AST 24 (5-40) units/L Lipids 03/19/19 Range/Units 18:28 Triglycerides 281 H (2-149) mg/dL Cholesterol 201 H (50-199) mg/dL HDL Cholesterol 53 (40-59) mg/dL Cholesterol/HDL Ratio 3.79 % CBC 03/19/19 03/20/19 Range/Units 13:08 04:23 WBC 7.7 8.0 (4.5-11.0) K/mm3 RBC 4.79 4.11 (3.65-5.03) M/mm3 Hgb 15.6 H 13.3 (10.1-14.3) gm/dl Hct 45.4 H 39.2 D (30.3-42.9) % Plt Count 306 258 (140-440) K/mm3 Lymph # 2.2 2.4 (1.2-5.4) K/mm3 [place] # 0.5 0.5 (0.0-0.8) K/mm3 Eos # 0.2 0.1 (0.0-0.4) K/mm3 Baso # 0.1 0.0 (0.0-0.1) K/mm3 Comprehensive Metabolic Panel 03/19/19 03/20/19 Range/Units 13:08 04:23 Sodium 142 141 (137-145) mmol/L Potassium 4.8 4.0 (3.6-5.0) mmol/L Chloride 103.3 105.5 (98-107) mmol/L Carbon Dioxide 25 22 (22-30) mmol/L BUN 9 16 (7-17) mg/dL Creatinine 0.4 L 0.6 L (0.7-1.2) mg/dL Glucose 90 104 H (65-100) mg/dL Calcium 9.3 8.5 (8.4-10.2) mg/dL AST 24 (5-40) units/L ALT 24 (7-56) units/L Alkaline Phosphatase 75 (35-129) units/L Total Protein 6.2 L (6.3-8.2) g/dL Albumin 3.9 (3.9-5) g/dL EKG interpretations - Telemetry EKG Rhythm: Sinus Rhythm Assessment and Plan 1. Chest pain rule out ischemic coronary artery disease 2. History of COPD 3. Anxiety disorder 4. Hyperlipidemia Plan. Serum troponin levels are normal chest pain appears atypical and probably noncardiac. Stress thallium scan will be done to rule out ischemic coronary artery disease.
[2019-03-20 11:29] VITALS: BP 159/72
--- NOTE | 2019-03-20 11:48 | Event Note ---
Date: 03/20/19 Lexiscan done today shows normal myocardial perfusion scan images
--- NOTE | 2019-03-20 12:26 | Discharge Summary ---
Providers - Providers Date of Admission: 03/19/19 18:10 Date of discharge: 03/20/19 Attending physician: SAEED RUSSELL 03/19/19 Consult to Cardiac Rehabilitation [CONS] Routine Reason For Exam: Phase I 03/19/19 18:10 Consult to Cardiology [CONS] Routine Consulting Provider: JIMBO AL Reason For Exam: angina Primary care physician: PATTERN CHART WRITER Hospitalization Reason for admission: cp Condition: Fair Hospital course: 58 year old female presenting with chest pain for the past 2-3 weeks p rior to admission. Pain varies intermittently from an intensity of 3/10-9/10. Patient reported some associated shortness of breath. She denied any prior history of a heart attack of cardiac disease. No history of exertional angina. The patient was admitted with diagnosis of chest pain. Cardiology saw the patient in consultation. Serum troponin levels were normal and chest pain appeared atypical and probably noncardiac per cardiology. Cardiology recommended echocardiogram and stress test. Echocardiogram revealed left ventricular chamber size, wall thickness and systolic function within normal limits. No wall motion abnormalities observed. EF is normal at 55-60%. Lexiscan done today shows normal myocardial perfusion scan images. Etiology of chest pain is likely anxiety related given her history anxiety disorder continue her home dose of Xanax. Patient will be discharged. Dedicated discharge time 32 minutes. Disposition: - TO HOME OR SELFCARE Time spent for discharge: 32 - Discharge Diagnoses (1) Anxiety disorder Status: Acute (2) Chest pain Status: Acute (3) Nicotine dependence Status: Acute Qualifiers: Substance use status: uncomplicated Core Measure Documentation - Palliative Care Palliative Care/ Comfort Measures: Not Applicable - Core Measures Any of the following diagnoses?: none Exam - Constitutional Vitals: Temp Pulse Resp BP Pulse Ox 97.8 F 69 18 159/72 99 03/20/19 11:28 03/20/19 11:28 03/20/19 11:28 03/20/19 11:28 03/20/19 11:28 General appearance: Present: no acute distress, well-nourished - EENT Eyes: Present: PERRL ENT: hearing intact, clear oral mucosa - Neck Neck: Present: supple, normal ROM - Respiratory Respiratory effort: normal Respiratory: bilateral: CTA - Cardiovascular Heart Sounds: Present: S1 & S2. Absent: rub, click - Extremities Extremities: pulses symmetrical, No edema Peripheral Pulses: within normal limits - Abdominal General gastrointestinal: Present: soft, non-tender, non-distended, normal bowel sounds Female genitourinary: Present: normal - Integumentary Integumentary: Present: clear, warm, dry - Musculoskeletal Musculoskeletal: gait normal, strength equal bilaterally - Psychiatric Psychiatric: appropriate mood/affect, intact judgment & insight - Neurologic Neurologic: CNII-XII intact, moves all extremities Plan Activity: advance as tolerated Weight Bearing Status: Weight Bear as Tolerated Diet: regular Follow up with: PRIMARY CAREMD [Primary Care Provider] - 3-5 Days TING VALERIO MD [Staff Physician] - 7 Days
[2019-03-20] MEDS: PEPCID PO SCH (12:52)
== END 2019-03-20 14:10 | disposition home or self-care (01) ==
LOC: ED 11:31 → 4A 18:10 → INTOOBSV 18:10
PROVIDERS: ADMIT Internal Medicine; ATTEND Hospitalist
DX: I20.9 Angina pectoris, unspecified (principal); I16.0 Hypertensive urgency; I11.0 Hypertensive heart disease with heart failure; I50.9 Heart failure, unspecified; J44.9 Chronic obstructive pulmonary disease, unspecified; F41.9 Anxiety disorder, unspecified; E78.5 Hyperlipidemia, unspecified; F17.200 Nicotine dependence, unspecified, uncomplicated; Z90.710 Acquired absence of both cervix and uterus; Z98.891 History of uterine scar from previous surgery
CPT/HCPCS: 36415; 71046; 78452; 80048; 80053; 80061; 84484; 85025; 85379; 93005; 93010; 93017; 93306; 94640; 99284; A9270; A9502; G0378; J2785

== ENCOUNTER 2019-07-21 11:33 | Emergency (ER) | payer BC ==
[2019-07-21 12:10] VITALS: BP 165/88
--- NOTE | 2019-07-21 12:12 | Emergency Department Report ---
{null, Blank Doc - Documentation Documentation: 58-year-old female that presents with dizziness and headache. Headache is acute on chronic. This initial assessment/diagnostic orders/clinical plan/treatment(s) is/are subject to change based on patient's health status, clinical progression and re- assessment by fellow clinical providers in the ED. Further treatment and workup at subsequent clinical providers discretion. Patient/guardians urged not to elope from the ED as their condition may be serious if not clinically assessed and managed. Initial orders include: 1- Patient sent to [facility] for further evaluation and treatment 2- labs 3- UA }
[2019-07-21 13:20] LABS: BUN/Creatinine Ratio 15; Blood Urea Nitrogen 9 mg/dL (7-17); Calcium 9.4 mg/dL (8.4-10.2); Hemolysis Index 18
[2019-07-21 13:21] LABS: Basophils % (Auto) 0.8 % (0.0-1.8); Eosinophils # (Auto) 0.1 K/mm3 (0.0-0.4); Eosinophils % (Auto) 1.6 % (0.0-4.3); Hematocrit 45.4 % (30.3-42.9); Hemoglobin 15.6 gm/dl (10.1-14.3); Lymphocytes % (Auto) 32.1 % (13.4-35.0); Mean Corpuscular HGB Conc 34 % (30-34); Mean Corpuscular Volume 95 fl (79-97); Monocytes # (Auto) 0.4 K/mm3 (0.0-0.8); Monocytes % (Auto) 7.2 % (0.0-7.3); Platelet Count 296 K/mm3 (140-440); Red Blood Count 4.78 M/mm3 (3.65-5.03); Red Cell Distribution Width 13.5 % (13.2-15.2)
--- NOTE | 2019-07-21 17:34 | Emergency Department Report ---
{null, ED General Adult HPI - General Chief complaint: Weakness Stated complaint: WEAKNESS/HEADACHE Time Seen by Provider: 07/21/19 12:10 Source: patient Mode of arrival: Ambulatory Limitations: No Limitations - History of Present Illness Initial comments: 58-year-old female with history of hypertension, generalized anxiety disorder, and vertigo presents with complaints of intermittent headaches, dizziness, generalized body shakes, and constant ringing in the ears x more than 3 years. Patient has been evaluated in this ED for these complaints last year. She states she is following with ENT, Dr. Khan, and primary care, Dr. Lane, for these issues. She states she has had multiple CTs and MRI's of the head performed in the past to evaluate these symptoms and have been normal. She denies any current headache or dizziness and also denies any chest pain, shortness of breath, numbness/tingling/weakness in her limbs, slurred speech, or confusion. Patient states " I have been going through this for years and I am just getting tired of it". Patient states she is also very frustrated with these episodes because it is impacting her work and she is currently attempting to apply for disability. She states she is currently taking meclizine as needed for her vertigo which works well for the dizziness, but does not help with the ringing in her ears. Patient is also taking Xanax 3 times daily for anxiety. She reports intermittently when she wakes up in the morning she has episodes of diffuse shaking and states it is not related to her anxiety. She she states she is fully aware during these episodes and is able to move her body and speak. She denies any new or worsening symptoms. -: year(s) - Related Data Home Medications Medication Instructions Recorded Confirmed Last Taken Meclizine [Antivert] 25 mg PO BID PRN 07/15/15 03/19/19 03/11/19 ALPRAZolam [Xanax TAB] 0.5 mg PO TID PRN 03/19/19 03/19/19 03/18/19 Previous Rx's Medication Instructions Recorded Last Taken Type labetaloL [Labetalol 100mg TAB] 100 mg PO BID #60 tablet 03/20/19 Unknown Rx Allergies Allergy/AdvReac Type Severity Reaction Status Date / Time ibuprofen AdvReac Nausea Verified 05/20/18 10:25 ED Review of Systems ROS: Stated complaint: WEAKNESS/HEADACHE Other details as noted in HPI ED Past Medical Hx - Past Medical History Previous Medical History?: Yes Hx COPD: Yes Additional medical history: VERTIGO - Surgical History Past Surgical History?: Yes Additional Surgical History: HYSTERECTOMY. - Social History Smoking Status: Never Smoker Substance Use Type: None - Medications Home Medications: Home Medications Medication Instructions Recorded Confirmed Last Taken Type Meclizine [Antivert] 25 mg PO BID PRN 07/15/15 03/19/19 03/11/19 History ALPRAZolam [Xanax TAB] 0.5 mg PO TID PRN 03/19/19 03/19/19 03/18/19 History labetaloL [Labetalol 100mg TAB] 100 mg PO BID #60 tablet 03/20/19 Unknown Rx ED Physical Exam - General Limitations: No Limitations General appearance: alert, in no apparent distress - Head Head exam: Present: atraumatic, normocephalic - Eye Eye exam: Present: normal appearance - ENT ENT exam: Present: mucous membranes moist - Neck Neck exam: Present: normal inspection, full ROM. Absent: tenderness - Respiratory Respiratory exam: Present: normal lung sounds bilaterally. Absent: respiratory distress - Cardiovascular Cardiovascular Exam: Present: regular rate, normal rhythm. Absent: systolic murmur, diastolic murmur, rubs, gallop - GI/Abdominal GI/Abdominal exam: Present: soft. Absent: distended - Extremities Exam Extremities exam: Present: normal inspection, full ROM, normal capillary refill. Absent: tenderness, pedal edema, calf tenderness - Neurological Exam Neurological exam: Present: alert, oriented X3, CN II-XII intact. Absent: motor sensory deficit - Expanded Neurological Exam Expanded Cerebellar function: Heel to [place]: Normal, Romberg: Normal Sensory exam: Upper Extremity Light Touch: Normal, Lower Extremity Light Touch: Normal Motor strength exam: RUE: 5, LUE: 5, RLE: 5, LLE: 5 - Psychiatric Psychiatric exam: Present: normal affect, normal mood - Skin Skin exam: Present: warm, dry, intact, normal color. Absent: rash, diaphoretic, erythema ED Course Vital Signs 07/21/19 12:08 Temperature 97.9 F Pulse Rate 75 Respiratory 18 Rate Blood Pressure 165/88 O2 Sat by Pulse 100 Oximetry ED Medical Decision Making - Lab Data Result diagrams: 07/21/19 12:45 07/21/19 12:45 Lab Results 07/21/19 07/21/19 Range/Units 12:45 12:45 WBC 6.2 (4.5-11.0) K/mm3 RBC 4.78 (3.65-5.03) M/mm3 Hgb 15.6 H (10.1-14.3) gm/dl Hct 45.4 H (30.3-42.9) % MCV 95 (79-97) fl MCH 33 H (28-32) pg MCHC 34 (30-34) % RDW 13.5 (13.2-15.2) % Plt Count 296 (140-440) K/mm3 Lymph % (Auto) 32.1 (13.4-35.0) % [place] % (Auto) 7.2 (0.0-7.3) % Eos % (Auto) 1.6 (0.0-4.3) % Baso % (Auto) 0.8 (0.0-1.8) % Lymph # 2.0 (1.2-5.4) K/mm3 [place] # 0.4 (0.0-0.8) K/mm3 Eos # 0.1 (0.0-0.4) K/mm3 Baso # 0.0 (0.0-0.1) K/mm3 Seg Neutrophils % 58.3 (40.0-70.0) % Seg Neutrophils # 3.6 (1.8-7.7) K/mm3 Sodium 139 (137-145) mmol/L Potassium 4.9 (3.6-5.0) mmol/L Chloride 104.3 (98-107) mmol/L Carbon Dioxide 22 (22-30) mmol/L Anion Gap 18 mmol/L BUN 9 (7-17) mg/dL Creatinine 0.6 L (0.7-1.2) mg/dL Estimated GFR > 60 ml/min BUN/Creatinine Ratio 15 % Glucose 91 (65-100) mg/dL Calcium 9.4 (8.4-10.2) mg/dL - Medical Decision Making 58-year-old female with history of hypertension, generalized anxiety disorder, and vertigo presents with complaints of intermittent headaches, dizziness, generalized body shakes, and constant ringing in the ears x more than 3 years. Patient states these symptoms are chronic and denies any new changes in her symptoms. Patient reports she has had her symptoms evaluated with CT's and MRIs of the head that have been normal. She is currently following with Dr. Khan, ENT. She states that her symptoms usually improve for a few days after she has the head maneuvers performed by the her ENT doctor. her neuro exam is normal. Her vitals are within normal limits. Given patient's symptoms are chronic and there is no acute worsening or deficits noted on her neuro exam, recommend patient follow-up for further evaluation and assessment with neurology. Discussed strict return precautions in detail with patient who verbalizes understanding. Critical care attestation.: If time is entered above; I have spent that time in minutes in the direct care of this critically ill patient, excluding procedure time. ED Disposition Clinical Impression: Vertigo, Episode of shaking Tinnitus Qualifiers: Laterality: bilateral Qualified Code(s): H93.13 - Tinnitus, bilateral Disposition: DC-01 TO HOME OR SELFCARE Is pt being admited?: No Condition: Stable Instructions: Vertigo (ED) Referrals: AGUSTIN CISNEROS MD [Referring] - 3-5 Days }
== END 2019-07-21 18:03 | disposition home or self-care (01) ==
LOC: ED 11:33
DX: H93.13 Tinnitus, bilateral (principal); G25.2 Other specified forms of tremor; R42 Dizziness and giddiness; Z88.6 Allergy status to analgesic agent; J44.1 Chronic obstructive pulmonary disease with (acute) exacerbation; Z90.710 Acquired absence of both cervix and uterus; Z98.890 Other specified postprocedural states; Z79.899 Other long term (current) drug therapy
CPT/HCPCS: 36415; 80048; 85025

== ENCOUNTER 2021-10-04 15:39 | Emergency (ER) | payer SELFPAY ==
[2021-10-04 16:05] VITALS: BP 190/88
== END 2021-10-04 19:47 | disposition left against medical advice (07) ==
LOC: ED 15:39
DX: I10 Essential (primary) hypertension (principal); Z53.21 Procedure and treatment not carried out due to patient leaving prior to being seen by health care provider